=== PATIENT | male | born 1945 | race Caucasian/White ===

== ENCOUNTER 2022-04-25 13:46 | Outpatient (CLI) | payer MEDICARE, OTHER, SELFPAY ==
[2022-04-25 12:56] LABS: Albumin* 4.4 g/dL (3.3-5.0); Chloride* 98 mmol/L (96-114); Sodium* 134 mmol/L (135-149)
[2022-04-25 12:58] LABS: Cholesterol* 124 mg/dL (90-199)
[2022-04-25 12:59] LABS: Alanine Aminotransferase* 15 U/L (4-50); Alkaline Phosphatase* 51 U/L (40-150); Aspartate Amino Transferase* 31 U/L (12-35); Bilirubin Total* 1.5 mg/dL (0.1-1.5); Blood Urea Nitrogen* 11 mg/dL (7-30); Calcium* 9.1 mg/dL (8.4-10.6); Carbon Dioxide* 29 mmol/L (20-32); Creatinine* 0.7 mg/dL (0.5-1.5); Estimated Glomerular Filt Rate 96 ml/min; Glucose* 101 mg/dL (60-115); Total Protein* 6.8 g/dL (6.0-8.3); Triglycerides* 69 mg/dL (40-149)
[2022-04-25 13:00] LABS: HDL Cholesterol* 47 mg/dL (>=40); LDL Cholesterol Calculated 63 mg/dL (<100)
[2022-04-25 13:30] LABS: PSA Screen* 0.71 ng/mL (0.10-4.00)
== END 2022-04-25 13:47 | disposition home or self-care (01) ==
PROVIDERS: PCP Internal Medicine; Visit Provider Internal Medicine
DX: E03.9 Hypothyroidism, unspecified (principal); E78.5 Hyperlipidemia, unspecified; Z13.9 Encounter for screening, unspecified
CPT/HCPCS: 80053; 80061; 84153; 84443

== ENCOUNTER 2023-02-22 11:05 | Outpatient (CLI) | payer MEDICARE, OTHER, SELFPAY | END 2023-02-22 11:06 | disposition home or self-care (01) | LOC: NFLDREF 02-23 06:46 | PROVIDERS: PCP Internal Medicine; Referring Provider Internal Medicine; Visit Provider Internal Medicine | DX: Z51.81 Encounter for therapeutic drug level monitoring (principal); Z79.01 Long term (current) use of anticoagulants | CPT/HCPCS: 85610 ==

== ENCOUNTER 2023-06-07 10:20 | Outpatient (CLI) | payer MEDICARE, OTHER, SELFPAY | END 2023-06-07 10:21 | disposition home or self-care (01) | LOC: NFLDREF 06-10 16:40 | PROVIDERS: PCP Internal Medicine; Referring Provider Internal Medicine; Visit Provider Internal Medicine | DX: E03.9 Hypothyroidism, unspecified (principal); E78.5 Hyperlipidemia, unspecified; I10 Essential (primary) hypertension; Z51.81 Encounter for therapeutic drug level monitoring; Z79.01 Long term (current) use of anticoagulants | CPT/HCPCS: 80053; 80061; 84443 ==

== ENCOUNTER 2023-11-22 10:34 | Outpatient (CLI) | payer MEDICARE, OTHER, SELFPAY | END 2023-11-22 10:35 | disposition home or self-care (01) | LOC: NFLDREF 14:34 | PROVIDERS: PCP Internal Medicine; Referring Provider Internal Medicine; Visit Provider Internal Medicine | DX: Z51.81 Encounter for therapeutic drug level monitoring (principal); Z95.2 Presence of prosthetic heart valve; Z79.01 Long term (current) use of anticoagulants | CPT/HCPCS: 85610 ==

== ENCOUNTER 2023-12-24 11:27 | Outpatient (CLI) | payer MEDICARE, OTHER, SELFPAY ==
--- OUTSIDE RECORDS SUMMARY | 2023-12-26 10:27 | XMS_ITS | Encounter Summary ---
Author Name Unknown Organization [facility] Address [address] [place] [address] Care Team Providers Care Warehouse Processor Name Role Phone Found, No Pcp Primary Care Provider Unavailab le Encounter Details Date Type Department Care Team (Latest Contact Info) Description 09/27/1999 Office Visit Mandeep Velazquez MD [address] [id number] Social History Tobacco Use Types Packs/Day Years Used Date Smoking Tobacco: Never Assessed Sex and Gender Information Value Date Recorded Sex Assigned at Not on file Gender Identity Not on file Sexual Orientation Not on file documented as of this encounter Progress Notes * Mandeep Velazquez - 09/27/1999 12:00 AM CSTS: Dictation for the physical examination done on the state has been lost. No significant details of the examination are recalled. IN SUMMARY: LOST DICTATION. cc: DISPATCHER documented in this encounter Plan of Treatment Not on file documented as of this encounter Visit Diagnoses Not on filedocumented in this encounter Care Teams Warehouse Processor Relationship Specialty Start Date End Date Found, No PcpMD [address] [facility] [place] [address] PCP - General 05/08/22 documented as of this encounter
--- OUTSIDE RECORDS SUMMARY | 2023-12-26 10:27 | XMS_ITS | Clinical Summary ---
Author Name Unknown Organization [facility] Address [place], [place] [address] Care Team Providers Care Registered Nurse Maternal Child Name Role Phone Nonstaff, Doctor Primary Care Provider Unavailab le Medications Medication Sig Dispensed Refills Start Date End Date Status ASPIRIN (ASPIR-81 ORAL) Take by mouth. Active levothyroxine (LEVOTHROID) 25 mcg tablet Take 25 mcg by mouth before breakfast. Active simvastatin (ZOCOR) 40 mg tablet Take 40 mg by mouth at bedtime. Active WARFARIN SODIUM (COUMADIN ORAL) Take by mouth. Activ e metoprolol (LOPRESSOR) 100 mg tabletIndications:h ypertension Take 100 mg by mouth 2 times daily. Patient is to take 1.5 tabs (150 mg) in the morning and 1 tablet (100 mg) in the evening Indications: HYPERTENSION Active hydrochlorothiazide (HCTZ) 25 mg tabletIndications:h ypertension Take 25 mg by mouth once daily. Indications: HYPERTENSION Active cloNIDine (CATAPRES) 0.1 mg tabletIndications:h ypertension Take 0.1 mg by mouth 2 times daily. Indications: HYPERTENSION Active lisinopril (PRINIVIL; ZESTRIL) 40 mg tabletIndications:h ypertension Take 40 mg by mouth once daily. Indications: HYPERTENSION Active Active Problems Problem Noted Date Diagnosed Date Sensorineural hearing loss, bilateral 06/02/2021 Social History Tobacco Use Types Packs/Day Years Used Date Smoking Tobacco: Never Assessed Sex and Gender Information Value Date Recorded Sex Assigned at Not on file Gender Identity Not on file Sexual Orientation Not on file Plan of Treatment Health Maintenance Due Date Last Done Comments Tdap 1957 Depression screening for age 12+ 1958 BMI (ht and wt on same day) for age 18+ 1964 Hepatitis C screening for age 18-79 1964 Tetanus booster 1966 Zoster (shingles) series for age 50+ (1 of 2) 1996 Medicare Wellness for age 65+ 2011 Pneumococcal series for age 65+ (1 of 1 - PCV) 2011 COVID-19 vaccine series (3 - 2022-24 season) 2023 11/14/2020, 10/17/2020 Influenza for age 65+ 04/20/2024 Insurance Payer Benefit Plan / Group Subscriber ID Effective Dates Phone Address Type MEDICARE PART A - HB USE ONLY MEDICARE PART A HB ONLY [id number] 2011-Presen t ATTN: CLAIMS [address] [place] [address] MEDICARE PART B - HB USE ONLY MEDICARE PART B HB ONLY [id number] 2011-Presen t ATTN: CLAIMS [address] [place] [address] MEDICA MR MEDICA [employer] MR PB ONLY [id number] 2018-Present [address] [address] [place] [address] Care Teams Registered Nurse Maternal Child Relationship Specialty Start Date End Date Nonstaff, Doctor NON STAFF DOCTOR PCP - General 10/30/13
--- OUTSIDE RECORDS SUMMARY | 2023-12-26 10:27 | XMS_ITS | Encounter Summary ---
Author Name Unknown Organization [facility] Address [address] [place] [address] Care Team Providers Care Wool Sorter Name Role Phone Found, No Pcp Primary Care Provider Unavailab le Encounter Details Date Type Department Care Team (Late st Contact Info) Description 06/27/2007 Consent for Procedure/Treatme [facility] [address] [place], [place] [id number] [place] [address] [place] [address] [facility] Colonoscopy Informed Consent Social History Tobacco Use Types Packs/Day Years Used Date Smoking Tobacco: Never Alcohol Use Standard Drinks/Week Comments No 0 (1 standard drink = 0.6 oz pur e alcohol) Sex and Gender Information Value Date Recorded Sex Assigned at Not on file Gender Identity Not on file Sexual Orientation Not on file documented as of this encounter Progress Notes * Fernando Hayes - 06/27/2007 12:00 AM INFORMATION SYSTEMS SPECIALIST RMATION SYSTEMS SPECIALIST documented in this encounter Plan of Treatment Not on file documented as of this encounter Visit Diagnoses Not on filedocumented in this encounter Care Teams Wool Sorter Relationship Specialty Start Date End Date Found, No Pcp, [address] [place] [address] PCP - General 05/08/22 documented as of this encounter
--- OUTSIDE RECORDS SUMMARY | 2023-12-26 10:27 | XMS_ITS | Clinical Summary ---
Author Name Unknown Organization [facility] Address [address] [place] [address] Care Team Providers Care Seo Intern Name Role Phone Found, No Pcp MD Primary Care Provider Unavailab le Source Comments You are receiving this document as you are listed as the primary care provider,follow-up provider, or the patient has been referred to you for consultation.This is in compliance with the Medicare and[facility] EHR Incentive Program,which states Providers who transition their patient to another setting of careor provider of care or refers their patient to another provider of care shouldprovide summary care record for each transition of care or referral. [facility] Allergies No known active allergies Medications Medication Sig Dispensed Refills Start Date End Date Status ATENolol (AKA TENORMIN) 100 MG tabletIndications:Unspec ified essential hypertension (HRC) Take 1 Tab by mouth daily. 90 Tab prn 07/11/2011 Active hydrochlorothiazide (AKA HYDRODIURIL) 25 MG tabletIndications:Unspec ified essential hypertension (HRC) Take 1 Tab by mouth daily. 90 Tab prn 07/11/2011 Active nifedipine osmotic (AKA PROCARDIA XL) 90 MG 24 hour release tabletIndications:Unspec ified essential hypertension (HRC) Take 1 Tab by mouth daily. 90 Tab prn 07/11/2011 Active simvastatin (AKA ZOCOR) 20 MG tabletIndications:Hyperl ipidemia LDL goal < 130 (HRC) Take 1 Tab by mouth daily at bedtime. 90 Tab prn 07/11/2011 Active Active Problems Problem Noted Date Diagnosed Date Epidermal cyst 07/11/2011 Overview: Epidermal cyst, right LVH (left ventricular hypertrophy) 07/22/2008 Aortic stenosis 06/18/2008 Overview: Mild-Mod., Bicuspid Valve (ECHO 07/22/08) Diverticulosis of sigmoid colon 06/27/2007 Overview: ICD 10 Overweight 02/01/2006 Overview: BMI 30 Impaired fasting glucose 02/01/2006 Hyperlipidemia with target LDL less than 130 Overview: ICD 10 Essential hypertension 06/21/2004 Overview: [facility] Resolved Problems Problem Noted Date Diagnosed Date Resolved Date Erectile dysfunction 07/07/2010 011 Immunizations Name Administration Dates Next Due Afluria (18+yrs) Preservative Free 07/21/2009 Flu Vac (3+ yrs) 07/11/2011,06/18/2008 HepA Adult (19+ yrs) 04/18/2013,06/14/2009 Influenza IIV4 (Quadrivalent ) 0.5mL (64087) 05/19/2021,07/11/2019,05/29/2012,2010 Moderna Monovalent 12+ 11/14/2020,10/17/2020 Moderna Monovalent Booster 12+ 12/27/2021,2020 PCV13 (Prevnar) 10/20/2014 PPSV23 (Pneumovax) 07/01/2013,04/15/2012 Td 08/24/1999 Tdap 04/29/2020,06/14/2009 Typhoid (Typhim Vi, IM) 06/14/2009 Family History Medical History Relation Name Comments Cancer, Prostate Father Diabetes, Type II Father Cataract Mother Coronary Artery Disease Mother [place] @ 87 Macular Degeneration Mother Cancer, Breast Sister 2 Glaucoma Negative Family History Hypertension Negative Family History Thyroid Disorder Negative Family History Relation Name Status Comments Father (Age 76) Mother (Age 89) CHF Brother 1 Alive Brother 2 Alive Daughter Alive Sister 1 Alive Sister 2 Son 1 Alive Son 2 Alive Son 3 Alive Social History Tobacco Use Types Packs/Day Years Used Date Smoking Tobacco: Never Alcohol Use Standard Drinks/Week Comments No 0 (1 standard drink = 0.6 oz pur e alcohol) Sex and Gender Information Value Date Recorded Sex Assigned at Not on file Gender Identity Not on file Sexual Orientation Not on file Last Filed Vital Signs Vital Sign Reading Time Taken Comments Blood Pressure 130/84 07/11/2011 4:00 PM BLASTING MINER Pulse 64 07/11/2011 4:00 PM BLASTING MINER Temperature 36.7 ??C (98.1 ??F) 10/03/2010 10:[address] Respiratory Rate 14 07/11/2011 4:00 PM BLASTING MINER Oxygen Saturation - - Inhaled Oxygen Concentration - - Weight 85.7 kg (189 lb) 07/11/2011 4:00 PM BLASTING MINER Height 168.9 cm (5' 6.5) 07/11/2011 4:00 PM BLASTING MINER Body Mass Index 30.05 07/11/2011 4:00 PM BLASTING MINER Plan of Treatment Health Maintenance Due Date Last Done Comments Hep C Screening (Preventive Services) 1945 Medicare Welcome Visit 1945 Zoster/Shingles (1 of 2) 1996 Colonoscopy 06/27/2017 06/27/2007, 06/27/2007 COVID-19 Vaccine ( season) 2023 12/27/2021, 06/23/2021, 11/14/2020, Additional history exists Influenza (Season Ended) 2024 021, 07/11/2019, 05/29/2012, Additional history exists DTaP/Tdap/Td (3 - Tdap) 04/29/2030 04/29/20 20, 06/14/2009, 08/24/1999 Cholesterol Discontinued 06/29/2011, 11/0 04/2010, 06/17/2009, Additional history exists HepA Completed 04/18/2013, 06/14/2009 Pneumococcal 65+ Yrs Completed 10/20/2014, 07/01/2013, 04/15/2012 HepB Aged Out No longer eligi ble based on patient's age to complete this topic Hib Aged Out No longer eligi ble based on patient's age to complete this topic IPV (Polio) Aged Out No longer eligi ble based on patient's age to complete this topic MCV4 Aged Out No longer eligi ble based on patient's age to complete this topic Procedures Procedure Name Priority Date/Time Associated Diagnosis Comments LIPID PANEL & DIRECT LDL (IF NEEDED) Routine 06/29/2011 9:44 AM BLASTING MINER Hyperlipidemia LDL goal < 130 COLONOSCOPY 06/27/2007 12:00 AM BLASTING MINER from Last 3 Months or Most Recently Relevant to Health Maintenance Results * LIPID PANEL AND DIRECT LDL(IF NEEDED) (06/29/2011 9:44 AM BLASTING MINER) Cholesterol 166 0 - 199 mg/dl [facility] Triglyceride 88 0 - 149 mg/dl [facility] HDL 44 >40 mg/dl [facility] LDL, Calc. 104 0 - 129 mg/dl [facility] Hours Fasting 16 hours [facility] 06/29/2011 9:44 AM BLASTING MINER 06/29/2011 9:49 AM BLASTING MINER Pablito Jules MD LAB_1 Performing Organization Address City/State/[facility] Co de Phone Number [facility] [address] [address] * COLONOSCOPY (06/27/2007 12:00 AM BLASTING MINER) Narrative 06/27/2007 12:00 AM BLASTING MINER Ordered by an unspecified provider. Transcriptions Fernando Hayes - 06/27/2007 12:00 AM BLASTING MINER Physician Unknown DUMMY/OTHER/AR from Last 3 Months or Most Recently Relevant to Health Maintenance Advance Directives * No Code Status (Latest Code Status on File) Date Activated Date Inactivated Comments 01/10/2005 10:21 AM 01/10/2005 10:21 AM Care Teams Seo Intern Relationship Specialty Start Date End Date Found, No PcpMD [address] [place] [address] PCP - General 9/19/22
== END 2023-12-24 11:28 | disposition home or self-care (01) ==
LOC: NFLDREF 12-26 10:24
PROVIDERS: PCP Internal Medicine; Referring Provider Internal Medicine; Visit Provider Internal Medicine
DX: Z51.81 Encounter for therapeutic drug level monitoring (principal); Z95.2 Presence of prosthetic heart valve; Z79.01 Long term (current) use of anticoagulants
CPT/HCPCS: 85610

== ENCOUNTER 2024-05-29 09:24 | Outpatient (CLI) | payer MEDICARE, OTHER, SELFPAY ==
--- OUTSIDE RECORDS SUMMARY | 2024-05-29 13:52 | XMS_ITS | Encounter Summary ---
Author Organization [facility] Address [address] [place] [address] Care Team Providers Care Airframe Technician Name Role Phone Found, No Pcp Primary Care Provider Unavailab le Encounter Details Date Type Department Care Team (Late st Contact Info) Description 06/27/2007 Consent for Procedure/Treatme [facility] Gastroenterology [address] [place] [address] [place] [address] [place] [address] [facility] Colonoscopy Informed Consent Social History Tobacco [...] * Fernando Hayes - 06/27/2007 12:00 AM HIGH DENSITY FINISHING OPERATOR DENSITY FINISHING OPERATOR documented in this encounter Plan of Treatment Not on file documented as of this encounter Visit Diagnoses Not on filedocumented in this encounter Care Teams Airframe Technician Relationship Specialty Start Date End Date Found, No Pcp, [address] [place] [address] PCP - General 05/08/22 documented as of this encounter
--- OUTSIDE RECORDS SUMMARY | 2024-05-29 13:52 | XMS_ITS | Encounter Summary ---
Author Organization [facility] Address [address], [place] [address] Care Team Providers Care Mural Painter Name Role Phone Found, No Pcp Primary Care Provider Unavailab le Encounter Details Date Type Department Care Team (Latest Contact Info) Description 09/27/1999 Office Visit Mandeep Velazquez MD [address] [place] [address] [phone] Social History Tobacco Use Types Packs/Day Years [...] are recalled. IN SUMMARY: LOST DICTATION. cc: [place] LOAN ORIGINATOR ASSISTANT documented in this encounter Plan of Treatment Not on file documented as of this encounter Visit Diagnoses Not on filedocumented in this encounter Care Teams Mural Painter Relationship Specialty Start Date End Date Found, No PcpMD [address] [place] [address] PCP - General 05/08/22 documented as of this encounter
--- OUTSIDE RECORDS SUMMARY | 2024-05-29 13:52 | XMS_ITS | Clinical Summary ---
Author Organization [facility] Address [address] [place] [address] Care Team Providers Care Acid Retort Operator Name Role Phone Found, No Pcp MD Primary Care Provider Unavailab le Source Comments You are receiving this document as you are listed as the primary care provider,follow-up provider, or the patient has been referred to you for consultation.This is in compliance with the Medicare and[facility]id EHR Incentive Program,which states Providers who transition their patient to another setting of careor provider of care or refers their patient to another provider of care shouldprovide summary care record for each transition of care or referral. [facility] Allergies No known active allergies Medications Medication [...] Noted Date Diagnosed Date Epidermal cyst 07/11/2011 Overview (04/11/2017): Epidermal cyst, right LVH (left ventricular hypertrophy) 07/22/2008 Aortic stenosis 06/18/2008 Overview (07/23/2008): Mild-Mod., Bicuspid Valve (ECHO 07/22/08) Diverticulosis of sigmoid colon 06/27/2007 Overview (04/28/2015): ICD 10 Overweight 02/01/2006 Overview (06/28/2009): BMI 30 Impaired fasting glucose 02/01/2006 Hyperlipidemia with target LDL less than 130 Overview (04/28/2015): ICD 10 Essential hypertension 06/21/2004 Overview (05/20/2015): Epic Resolved Problems Problem Noted Date Diagnosed Date Resolved Date Erectile dysfunction 07/07/2010 011 Immunizations Name Administration Dates Next Due Afluria (18+yrs) Preservative Free 07/21/2009 Flu Vac (3+ yrs) 07/11/2011,06/18/2008 HepA Adult (19+ yrs) 04/18/2013,06/14/2009 Influenza IIV4 (Quadrivalent ) 0.5mL (53162) 05/19/2021,07/11/2019,05/29/2012,2010 Moderna Monovalent 12+ 11/14/2020,10/17/2020 Moderna Monovalent Booster 12+ 12/27/2021,2020 PCV13 (Prevnar) 10/20/2014 PPSV23 (Pneumovax) 07/01/2013,04/15/2012 Td 08/24/1999 Tdap 04/29/2020,06/14/2009 Typhoid (Typhim Vi, IM) 06/14/2009 Family History Medical History Relation Name Comments Cancer, Prostate Father Diabetes, Type II Father Cataract Mother Coronary Artery Disease Mother [place] @ 87 Macular Degeneration Mother Cancer, Breast [...] Comments Blood Pressure 130/84 07/11/2011 4:00 PM BUSINESS SERVICES CLERK Pulse 64 07/11/2011 4:00 PM BUSINESS SERVICES CLERK Temperature 36.7 ??C (98.1 ??F) 10/03/2010 10:[address] Respiratory Rate 14 07/11/2011 4:00 PM BUSINESS SERVICES CLERK Oxygen Saturation - - Inhaled Oxygen Concentration - - Weight 85.7 kg (189 lb) 07/11/2011 4:00 PM BUSINESS SERVICES CLERK Height 168.9 cm (5' 6.5) 07/11/2011 4:00 PM BUSINESS SERVICES CLERK Body Mass Index 30.05 07/11/2011 4:00 PM BUSINESS SERVICES CLERK Plan of Treatment Health Maintenance Due Date Last Done Comments Hep C Screening (Preventive Services) 1945 Medicare Welcome Visit 1945 Zoster/Shingles (1 of 2) 1996 Colonoscopy 06/27/2017 06/27/2007, 06/27/2007 RSV (1 - 1-dose 75+ series) 2021 COVID-19 Vaccine ( season) 2024 12/27/2021, 06/23/2021, 11/14/2020, Additional history exists Influenza (#1) 2024 05/19/2021, 06/21, 05/29/2012, Additional history exists DTaP/Tdap/Td (3 - Tdap) 04/29/2030 04/29/20 20, 06/14/2009, 08/24/1999 Cholesterol Discontinued 06/29/2011, 04/2010, 06/17/2009, Additional history exists HepA Completed 04/18/2013, 06/14/2009 Pneumococcal 65+ Yrs Completed 10/20/2014, 07/01/2013, 04/15/2012 HepB Aged Out No longer eligi ble based on patient's age to complete this topic Hib Aged Out No longer eligi ble based on patient's age to complete this topic IPV (Polio) Aged Out No longer eligi ble based on patient's age to complete this topic Infant RSV Aged Out No longer eligi ble based on patient's age to complete this topic MCV4 Aged Out No longer eligi ble based on patient's age to complete this topic Procedures Procedure Name Priority Date/Time Associated Diagnosis Comments LIPID PANEL & DIRECT LDL (IF NEEDED) Routine 06/29/2011 9:44 AM BUSINESS SERVICES CLERK Hyperlipidemia LDL goal < 130 COLONOSCOPY 06/27/2007 12:00 AM BUSINESS SERVICES CLERK from Last 3 Months or Most Recently Relevant to Health Maintenance Results * LIPID PANEL AND DIRECT LDL(IF NEEDED) (06/29/2011 9:44 AM BUSINESS SERVICES CLERK) Cholesterol 166 0 - 199 mg/dl [facility] Triglyceride 88 0 - 149 mg/dl [facility] HDL 44 >40 mg/dl [facility] LDL, Calc. 104 0 - 129 mg/dl [facility] Hours Fasting 16 hours [facility] 06/29/2011 9:44 AM BUSINESS SERVICES CLERK 06/29/2011 9:49 AM BUSINESS SERVICES CLERK Pablito Jules MD LAB_1 Performing Organization Address City/State/[facility] Co de Phone Number [facility] [address] [address] * COLONOSCOPY (06/27/2007 12:00 AM BUSINESS SERVICES CLERK) Narrative 06/27/2007 12:00 AM BUSINESS SERVICES CLERK Ordered by an unspecified provider. Transcriptions Fernando Hayes - 06/27/2007 12:00 AM BUSINESS SERVICES CLERK Physician Unknown DUMMY/OTHER/AR from Last 3 Months or Most Recently Relevant to Health Maintenance Advance Directives * No Code Status (Latest Code Status on File) Date Activated Date Inactivated Comments 01/10/2005 10:21 AM 01/10/2005 10:21 AM Care Teams Acid Retort Operator Relationship Specialty Start Date End Date Found, No Pcp, [address] [place] [address] PCP - General 05/08/22
== END 2024-05-29 09:25 | disposition home or self-care (01) ==
LOC: NFLDREF 13:51
PROVIDERS: PCP Internal Medicine; Referring Provider Internal Medicine; Visit Provider Internal Medicine
DX: E78.5 Hyperlipidemia, unspecified (principal); Z13.9 Encounter for screening, unspecified; E03.9 Hypothyroidism, unspecified; Z51.81 Encounter for therapeutic drug level monitoring; Z79.01 Long term (current) use of anticoagulants; Z12.5 Encounter for screening for malignant neoplasm of prostate
CPT/HCPCS: 80053; 80061; G0103

== ENCOUNTER 2024-07-24 13:41 | Outpatient (CLI) | payer MEDICARE, OTHER, SELFPAY ==
--- OUTSIDE RECORDS SUMMARY | 2024-07-28 18:30 | XMS_ITS | Encounter Summary ---
Author Organization [facility] Address [address], [place] [address] Care Team Providers Care Parts Counterperson Name Role Phone Found, No Pcp Primary Care Provider Unavailab le Encounter Details Date Type Department Care Team (Latest Contact Info) Description 09/27/1999 Office Visit Mandeep Velazquez MD [address] [phone] Social History Tobacco Use Types Packs/Day Years [...] are recalled. IN SUMMARY: LOST DICTATION. cc: ERADICATOR documented in this encounter Plan of Treatment Not on file documented as of this encounter Visit Diagnoses Not on filedocumented in this encounter Care Teams Parts Counterperson Relationship Specialty Start Date End Date Found, No PcpMD [address] [place] [address] PCP - General 05/08/22 documented as of this encounter
--- OUTSIDE RECORDS SUMMARY | 2024-07-28 18:30 | XMS_ITS | Clinical Summary ---
Author Organization [facility] Address [address] [place] [address] Care Team Providers Care Argon Tester Name Role Phone Found, No Pcp MD Primary Care Provider Unavailab le Source Comments You are receiving this document as you are listed as the primary care provider,follow-up provider, or the patient has been referred to you for consultation.This is in compliance with the Medicare and[facility]id EHR Incentive Program,which states Providers who transition their patient to another setting of careor provider of care or refers their patient to another provider of care shouldprovide summary care record for each transition of care or referral. [facility] Allergies No known active allergies Medications Medication [...] yrs) 04/18/2013,06/14/2009 Influenza IIV4 (Quadrivalent ) 0.5mL ([id number]) 05/19/2021,07/11/2019,05/29/2012,2010 Moderna Monovalent 12+ 11/14/2020,10/17/2020 Moderna Monovalent Booster 12+ 12/27/2021,2020 PCV13 (Prevnar) 10/20/2014 PPSV23 (Pneumovax) 07/01/2013,04/15/2012 Td 08/24/1999 Tdap 04/29/2020,06/14/2009 Typhoid (Typhim Vi, IM) 06/14/2009 Family History Medical History Relation Name Comments Cancer, Prostate Father Diabetes, Type II Father Cataract Mother Coronary Artery Disease Mother [place] @ 87 Macular Degeneration Mother Cancer, Breast [...] Comments Blood Pressure 130/84 07/11/2011 4:00 PM PIPE COVERER AND INSULATOR Pulse 64 07/11/2011 4:00 PM PIPE COVERER AND INSULATOR Temperature 36.7 C (98.1 F) 10/03/2010 10:53 AM PIPE COVERER AND INSULATOR Respiratory Rate 14 07/11/2011 4:00 PM PIPE COVERER AND INSULATOR Oxygen Saturation - - Inhaled Oxygen Concentration - - Weight 85.7 kg (189 lb) 07/11/2011 4:00 PM PIPE COVERER AND INSULATOR Height 168.9 cm (5' 6.5) 07/11/2011 4:00 PM PIPE COVERER AND INSULATOR Body Mass Index 30.05 07/11/2011 4:00 PM PIPE COVERER AND INSULATOR Plan of Treatment Health Maintenance Due Date [...] LDL (IF NEEDED) Routine 06/29/2011 9:44 AM PIPE COVERER AND INSULATOR Hyperlipidemia LDL goal < 130 COLONOSCOPY 06/27/2007 12:00 AM PIPE COVERER AND INSULATOR from Last 3 Months or Most Recently Relevant to Health Maintenance Results * LIPID PANEL AND DIRECT LDL(IF NEEDED) (06/29/2011 9:44 AM PIPE COVERER AND INSULATOR) [facility] Cholesterol 166 0 - 199 mg/dl [facility] Triglyceride 88 0 - 149 mg/dl [facility] HDL 44 >40 mg/dl [facility] LDL, Calc. 104 0 - 129 mg/dl [facility] Hours Fasting 16 hours [facility] 06/29/2011 9:44 AM PIPE COVERER AND INSULATOR 06/29/2011 9:49 AM PIPE COVERER AND INSULATOR Pablito Jules MD LAB_1 Performing Organization Address [facility]/State/[facility] Co de Phone Number [facility] [address] [address] * COLONOSCOPY (06/27/2007 12:00 AM PIPE COVERER AND INSULATOR) Narrative 06/27/2007 12:00 AM PIPE COVERER AND INSULATOR Ordered by an unspecified provider. Transcriptions Fernando Hayes - 06/27/2007 12:00 AM PIPE COVERER AND INSULATOR Physician Unknown DUMMY/OTHER/AR from Last 3 Months or Most Recently Relevant to Health Maintenance Advance Directives * No Code Status (Latest Code Status on File) Date Activated Date Inactivated Comments 01/10/2005 10:21 AM 01/10/2005 10:21 AM Care Teams Argon Tester Relationship Specialty Start Date End Date Found, No Pcp, [address] [place] [address] PCP - General 05/08/22
--- OUTSIDE RECORDS SUMMARY | 2024-07-28 18:30 | XMS_ITS | Clinical Summary ---
Author Organization [facility] Address [place], [place] [address] Care Team Providers Care Child Support Case Officer Name Role Phone Nonstaff, Doctor Primary Care Provider Unavailab le Medications ASPIRIN (ASPIR-81 ORAL) Take by mouth. Active levothyroxine (LEVOTHROID) 25 mcg tablet Take 25 mcg by mouth before breakfast. Active simvastatin (ZOCOR) 40 mg tablet Take 40 mg by mouth at bedtime. Active WARFARIN SODIUM (COUMADIN ORAL) Take by mouth. Active metoprolol (LOPRESSOR) 100 mg tabletIndicatio ns:hypertension Take 100 mg by mouth 2 times daily. Patient is to take 1.5 tabs (150 mg) in the morning and 1 tablet (100 mg) in the evening Indications: HYPERTENSION Active hydrochlorothia zide (HCTZ) 25 mg tabletIndicatio ns:hypertension Take 25 mg by mouth once daily. Indications: HYPERTENSION Active cloNIDine (CATAPRES) 0.1 mg tabletIndicatio ns:hypertension Take 0.1 mg by mouth 2 times daily. Indications: HYPERTENSION Active lisinopril (PRINIVIL; ZESTRIL) 40 mg tabletIndicatio ns:hypertension Take 40 mg by mouth once daily. 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
--- OUTSIDE RECORDS SUMMARY | 2024-07-28 18:30 | XMS_ITS | Encounter Summary ---
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
== END 2024-07-24 13:42 | disposition home or self-care (01) ==
LOC: NFLDREF 07-28 18:28
PROVIDERS: PCP Internal Medicine; Referring Provider Internal Medicine; Visit Provider Internal Medicine
DX: Z51.81 Encounter for therapeutic drug level monitoring (principal); Z79.01 Long term (current) use of anticoagulants
CPT/HCPCS: 85610

== ENCOUNTER 2024-10-16 13:35 | Outpatient (CLI) | payer MEDICARE, SELFPAY | END 2024-10-16 13:36 | disposition home or self-care (01) | LOC: NFLDREF 10-19 05:18 | PROVIDERS: PCP Internal Medicine; Referring Provider Internal Medicine; Visit Provider Internal Medicine | DX: E03.9 Hypothyroidism, unspecified (principal); Z51.81 Encounter for therapeutic drug level monitoring; Z79.01 Long term (current) use of anticoagulants | CPT/HCPCS: 84443; 85610 ==

== ENCOUNTER 2025-06-25 11:09 | Outpatient (CLI) | payer MEDICARE, OTHER, SELFPAY | END 2025-06-25 11:10 | disposition home or self-care (01) | LOC: NFLDREF 06-29 04:26 | PROVIDERS: PCP Internal Medicine; Referring Provider Internal Medicine; Visit Provider Internal Medicine | DX: Z51.81 Encounter for therapeutic drug level monitoring (principal); Z79.01 Long term (current) use of anticoagulants | CPT/HCPCS: 85610 ==

== ENCOUNTER 2025-07-07 09:30 | Outpatient (CLI) | payer MEDICARE, OTHER, SELFPAY | END 2025-07-07 09:31 | disposition home or self-care (01) | LOC: NFLDREF 12:41 | PROVIDERS: PCP Internal Medicine; Referring Provider Internal Medicine; Visit Provider Internal Medicine | DX: E78.5 Hyperlipidemia, unspecified (principal); E03.9 Hypothyroidism, unspecified; I10 Essential (primary) hypertension; Z95.2 Presence of prosthetic heart valve; Z51.81 Encounter for therapeutic drug level monitoring; Z79.01 Long term (current) use of anticoagulants; Z12.5 Encounter for screening for malignant neoplasm of prostate | CPT/HCPCS: 80053; 80061; 84443; 85610; G0103 ==